=== PATIENT | male | born 1985 | race Caucasian/White ===

== ENCOUNTER 2024-01-22 13:19 | Inpatient (IN) | payer SELFPAY ==
--- NOTE | 2024-01-22 13:21 | ECG_ITS ---
[facility] Test Date: 2024-01-22 Pat Name: Rupert dukes Department: Room: Gender: Male Talent Sourcing Specialist: : 1985 Requested By: Josephine Hudson Order Number: [id number] Perez MD: Gabriella Winter M.D. Measurements Intervals [place] Rate: 60 P: 35 MN: 194 QRS: 74 QRSD: 100 T: 43 QT: 412 QTc: 414 Interpretive Statements SINUS RHYTHM No previous ECG available for comparison Electronically Signed On 01-22-2024 19:11:47 CDT by Gabriella Winter M.D. [id number]
[2024-01-22 13:26] VITALS: BP 163/108; PULSE 77; RESP 18; TEMP 36.8; O2SAT 98; BMI 26.0
--- NOTE | 2024-01-22 14:01 | ED.C_ITS ---
HPI - Psych 2 General: Chief Complaint: Psychiatric Symptoms Stated Complaint: MHE Time Seen by Provider: 01/22/24 13:21 History of Present Illness: 38-year-old man who reports a history of PTSD and presents to the emergency room with severe depression, anxiety and thoughts of dying. Police report that he was actively saying he wanted to kill himself. At this point he says he just wants to but did not have an active plan. He does say he would like to be admitted for evaluation and treatment. He is very tearful. Review of Systems 2 Narrative: Constitutional symptoms: Negative except as documented in HPI. Skin symptoms: Negative except as documented in HPI. Eye symptoms: Negative except as documented in HPI. ENMT symptoms: Negative except as documented in HPI. Respiratory symptoms: Negative except as documented in HPI. Cardiovascular symptoms: Negative except as documented in HPI. Gastrointestinal symptoms: Negative except as documented in HPI. Genitourinary symptoms: Negative except as documented in HPI. Musculoskeletal symptoms: Negative except as documented in HPI. Neurologic symptoms: Negative except as documented in HPI. Psychiatric symptoms: Negative except as documented in HPI. Endocrine symptoms: Negative except as documented in HPI. Physical Exam 2 Narrative: EXAM NARRATIVE: General: Alert. no acute distress Skin: Warm, dry Head: Normocephalic, atraumatic. Neck: Supple, trachea midline. Eye: Extraocular movements are intact. Ears, nose, mouth and throat: Oral mucosa moist. Cardiovascular: Regular rate and rhythm, Normal peripheral perfusion. Respiratory: Lungs are clear to auscultation, respirations are non-labored, breath sounds are equal, Symmetrical chest wall expansion. Gastrointestinal: Soft, Nontender, Non distended, Normal bowel sounds. Musculoskeletal: Normal ROM, no deformity. Neurological: Alert and oriented to person, place, time, and situation, No focal neurological deficit observed. Psychiatric: Cooperative, depressed, expresses suicidal ideation. Tearful. Course 2 Vital Signs: Vital signs: Vital Signs Temperature 98.2 F 01/22/24 13:26 Pulse Rate 77 01/22/24 13:26 Respiratory Rate 18 01/22/24 13:26 Blood Pressure 163/108 01/22/24 13:26 Pulse Oximetry 98 01/22/24 13:26 Oxygen Delivery Me thod Room Air 01/22/24 13:26 MDM - Psych Medical Decision Making Differential diagnosis: Patient with reported depression and suicidal ideation. concerns for infection, alcohol intoxication, cardiac issues or other medical problems prior to psychiatric admission. Workup: labwork, ekg ordered to evaluate the pathologies and to clear the patient medically prior to psychiatric admission Lab Review: Laboratory results were reviewed and interpreted by myself the emergency room physician. Lab review: - Medically cleared. - EKG shows no ischemic changes. - Blood alcohol level is negative, as well as salicylate and Tylenol. - Drug screen is positive for marijuana and methamphetamine - No signs of infection, urinalysis clear and white count is not elevated - No anemia. - BUN and creatinine are within normal limits. EKG: Time 1342. Rate 60. Normal sinus rhythm, No ST-T changes, no ectopy, normal WI & QRS intervals, This was reviewed and interpreted by myself the ER physician at 1345 Consultation: I spoke with Dr. Marmolejo with the psychiatry service who agrees to admission. Assessment and plan: Suicidal ideation Depression PTSD -Admission to neuropsychiatric unit for continued evaluation and treatment. - All lab work was reviewed and interpreted personally by myself, the ER physician - Evaluation and treatment of this problem were appropriate in the emergency setting Lab Data 01/22/24 13:50 01/22/24 13:50 Laboratory Results WBC 10.53 10^3/uL (3.29-11.43) 01/22/24 13:50 RBC 4.52 10^6/uL (3.85-5.65) 01/22/24 13:50 Hgb 14.60 g/dL (11.27-16.99) 01/22/24 13:50 Hct 42.6 % (37-53) 01/22/24 13:50 MCV 94.2 fl (82-101) 01/22/24 13:50 MCH 32.3 pg (27-33) 01/22/24 13:50 MCHC 34.3 g/dL (30-55) 01/22/24 13:50 RDW 13.1 % (12.1-15.1) 01/22/24 13:50 Plt Count 237 10^3/cmm (157-399) 01/22/24 13:50 MPV 9.3 fL (7.4-10.4) 01/22/24 13:50 Neut % (Auto) 76.4 % 01/22/24 13:50 Lymph % (Auto) 14.8 % 01/22/24 13:50 [place] % (Auto) 6.1 % 01/22/24 13:50 Eos % (Auto) 1.8 % 01/22/24 13:50 Baso % (Auto) 0.6 % 01/22/24 13:50 Neut # (Auto) 8.05 10^3/uL (1.8-7.7) H 01/22/24 13:50 Lymph # (Auto) 1.6 10^3/uL (0.8-4.8) 01/22/24 13:50 [place] # (Auto) 0.6 10^3/uL (0.2-0.9) 01/22/24 13:50 Eos # (Auto) 0.2 10^3/uL (0.0-0.8) 01/22/24 13:50 Baso # (Auto) 0.1 10^3/uL (0.0-0.1) 01/22/24 13:50 Nucleated RBC % (auto) 0 % 01/22/24 13:50 Nucleated RBCs # 0.0 /100WBC 01/22/24 13:50 Sodium 139 mmol/L (136-145) 01/22/24 13:50 Potassium 3.8 mmol/L (3.5-5.1) 01/22/24 13:50 Chloride 102 mmol/L (98-107) 01/22/24 13:50 Carbon Dioxide 23 mmol/L (22-29) 01/22/24 13:50 Anion Gap 17.8 (5-19) 01/22/24 13:50 BUN 14 mg/dL (6-20) 01/22/24 13:50 Creatinine 1.1 mg/dL (0.7-1.2) 01/22/24 13:50 GFR Calculation 74.5 mL/min (90-130) L 01/22/24 13:50 Glucose 116 mg/dL (65-115) H 01/22/24 13:50 Calculated Osmolality 289 mOsm/kg (285-295) 01/22/24 13:50 Calcium 9.1 mg/dL (8.5-10.5) 01/22/24 13:50 Total Bilirubin 0.9 mg/dL (0.15-1.2) 01/22/24 13:50 AST 24 U/L (0-40) 01/22/24 13:50 ALT 25 U/L (0-41) 01/22/24 13:50 Alkaline Phosphatase 90 U/L (40-130) 01/22/24 13:50 Total Protein 6.9 g/dL (6.6-8.7) 01/22/24 13:50 Albumin 4.5 g/dL (3.5-5.2) 01/22/24 13:50 Globulin 2.4 g/dL (1.3-4.6) 01/22/24 13:50 TSH 1.02 uIU/mL (0.27-4.20) 01/22/24 13:50 Urine Color Yellow (Yellow) 01/22/24 14:49 Urine Appearance Clear (CLEAR) 01/22/24 14:49 Urine pH 5 (5-7) 01/22/24 14:49 Ur Specific [place] 1.010 (1.005-1.030) 01/22/24 14:49 Urine Protein Neg (Negative) 01/22/24 14:49 Urine Glucose (UA) Norm (Normal) 01/22/24 14:49 Urine Ketones Negative (Negative) 01/22/24 14:49 Urine Blood Neg (Negative) 01/22/24 14:49 Urine Nitrate Negative (Negative) 01/22/24 14:49 Urine Bilirubin Neg (Negative) 01/22/24 14:49 Urine Urobilinogen Norm mg/dL (Negative) 01/22/24 14:49 Ur Leukocyte Esterase Negative (Negative) 01/22/24 14:49 Urine RBC None /hpf (0-2) 01/22/24 14:49 Urine WBC Rare /hpf (0-5) 01/22/24 14:49 Ur Squamous Epith Cells 0-4 /hpf (0-5) H 01/22/24 14:49 Amorphous Sediment Not Reportable 01/22/24 14:49 Urine Bacteria Trace /hpf (NONE) 01/22/24 14:49 Salicylates 0.6 mg/dL (3-10) L 01/22/24 13:50 Urine Opiates Screen Negative ng/mL (Negative) 01/22/24 14:49 Acetaminophen < 5.0 ug/mL (10-30) L 01/22/24 13:50 Ur Barbiturates Screen Negative ng/mL (Negative) 01/22/24 14:49 Ur Phencyclidine Scrn Negative ng/mL (Negative) 01/22/24 14:49 Ur Amphetamines Screen Positive ng/mL (Negative) H 01/22/24 14:49 U Benzodiazepines Scrn Negative ng/mL (Negative) 01/22/24 14:49 Urine Cocaine Screen Negative ng/mL (Negative) 01/22/24 14:49 U Marijuana (THC) Screen Positive ng/mL (Negative) H 01/22/24 14:49 Ethyl Alcohol < 10 mg/dL (0-10) 01/22/24 13:50 No radiology studies performed this visit Discharge Plan Discharge Patient Disposition: Admitted As Inpatient Clinical Impression: Suicidal ideation Depression Qualifiers: Depression Type: major depressive disorder Major depression recurrence: u nspecified whether recurrent Active/Remission status: currently active Major depression episode severity: severe Psychotic features: without psychotic features Qualified Code(s): F32.2 - Major depressive disorder, single episode, severe without psychotic features Condition: Stable Coding Level of Care Code ED Gas Analyst for Kian Linn
[2024-01-22 14:02] LABS: Basophils # 0.1 10^3/uL (0.0-0.1); Basophils % 0.6 %; Eosinophils # 0.2 10^3/uL (0.0-0.8); Eosinophils % 1.8 %; Hematocrit 42.6 % (37-53); Lymphocytes # 1.6 10^3/uL (0.8-4.8); Lymphocytes % 14.8 %; Mean Corpuscular HGB Conc 34.3 g/dL (30-55); Mean Corpuscular Hemoglobin 32.3 pg (27-33); Mean Corpuscular Volume 94.2 fl (82-101); Mean Platelet Volume 9.3 fL (7.4-10.4); Monocytes # 0.6 10^3/uL (0.2-0.9); Monocytes % 6.1 %; Neutrophils # 8.05 10^3/uL (1.8-7.7); Neutrophils % 76.4 %; Nucleated Red Blood Cells % 0 %; Platelet Count 237 10^3/cmm (157-399); Red Blood Count 4.52 10^6/uL (3.85-5.65); Red Cell Distribution Width 13.1 % (12.1-15.1); White Blood Count 10.53 10^3/uL (3.29-11.43)
[2024-01-22 14:31] LABS: Alanine Aminotransferase 25 U/L (0-41); Albumin Level 4.5 g/dL (3.5-5.2); Alkaline Phosphatase 90 U/L (40-130); Aspartate Amino Transferase 24 U/L (0-40); Blood Urea Nitrogen 14 mg/dL (6-20); Calcium 9.1 mg/dL (8.5-10.5); Carbon Dioxide 23 mmol/L (22-29); Chloride 102 mmol/L (98-107); Creatinine Clr Calc Pharmacy 100.8837; Globulin 2.4 g/dL (1.3-4.6); Glomerular Filtration Rate 74.5 mL/min (90-130); Glucose 116 mg/dL (65-115); Osmolality Calculated 289 mOsm/kg (285-295); Salicylate 0.6 mg/dL (3-10); Sodium 139 mmol/L (136-145); Thyroid Stimulating Hormone 1.02 uIU/mL (0.27-4.20); Total Bilirubin 0.9 mg/dL (0.15-1.2); Total Protein 6.9 g/dL (6.6-8.7)
[2024-01-22 14:38] LABS: Acetaminophen < 5.0 ug/mL (10-30); Alcohol Level < 10 mg/dL (0-10); Anion Gap 17.8 (5-19); Potassium 3.8 mmol/L (3.5-5.1)
[2024-01-22 15:03] LABS: Add Urine Culture? No; Bacteria Urine TRACE /hpf; Bilirubin Urine Neg (Negative); Blood Urine Neg (Negative); Glucose Urine UA Norm (Normal); Ketones Urine Negative (Negative); Leukocyte Esterase Urine Negative (Negative); Nitrate Urine Negative (Negative); Protein Urine Neg (Negative); Squamous Epithelial Cell Urine 0-4 /hpf (0-5); Urine Appearance Clear (CLEAR); Urine Color Yellow (Yellow); Urobilinogen Urine Norm (Negative); WBC Urine RARE /hpf (0-5); pH Urine 5 (5-7)
[2024-01-22 15:08] LABS: Amphetamines Screen Urine Positive (Negative); Barbiturates Screen Urine Negative (Negative); Benzodiazepines Screen Urine Negative (Negative); Cocaine Screen Urine Negative (Negative); Opiate Screen Urine Negative (Negative); PCP Screen Urine Negative (Negative); THC Screen Urine Positive (Negative)
[2024-01-22 15:36] VITALS: BP 152/93; PULSE 70; RESP 16; TEMP 36.7; O2SAT 98
[2024-01-22 15:52] VITALS: BP 139/97; PULSE 65; RESP 16; TEMP 36.2; O2SAT 99
[2024-01-22] MEDS: nicotine 21 mg Patch 1 PATCH TRANSDERMA (16:21)
[2024-01-22] MEDS: nicotine 2 mg Gum BUCCAL (19:12)
[2024-01-22 20:44] VITALS: BP 147/100; PULSE 60; RESP 18; O2SAT 99
[2024-01-22] MEDS: OLANZapine 5 mg ODT PO (21:04)
[2024-01-22] MEDS: trazodone 50 mg Tablet PO (21:33)
[2024-01-23 06:00] VITALS: RESP 16
[2024-01-23] MEDS: nicotine 2 mg Gum BUCCAL ×3 (12:16→18:04)
[2024-01-23 14:00] VITALS: BP 136/88; PULSE 57; RESP 16; TEMP 36.8; O2SAT 100
[2024-01-23] MEDS: OLANZapine 5 mg ODT PO (16:52)
--- NOTE | 2024-01-23 16:53 | PC.NURSE ---
Patient reporting anxiety, requesting the medication he was given last night for anxiety. Pt rates anxiety 12/02. Administered zyprexa 5mg ODT to patient.
--- NOTE | 2024-01-23 17:24 | PC.NURSE ---
Patient crying in room, sitting on floor with head on bed and shirt off. Patient crying that his is the only person he has and that she is leaving him he just knows it because she has not called to check on him today. This nurse has attempted to encourage patient to live in the present moment, to not jump to conclusions. Patient still crying despite this nurse's best efforts. Patient agreeable to take a shower following supper. Patient has no contact numbers for , gpa, or dad. Patient did not arrive to unit with cell phone.
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
[2024-01-23 19:45] VITALS: BP 142/90; PULSE 73; RESP 18; TEMP 36.7; O2SAT 98
[2024-01-23] MEDS: trazodone 50 mg Tablet PO ×2 (20:09→22:06)
[2024-01-24 06:00] VITALS: BP 164/93; PULSE 80; RESP 16; O2SAT 97
[2024-01-24] MEDS: buPROPion XL (24 HR) 150 mg Tablet PO (09:01)
[2024-01-24] MEDS: methylphenidate 10 mg Tablet PO ×2 (09:01→11:53)
[2024-01-24] MEDS: nicotine 2 mg Gum BUCCAL (10:29)
[2024-01-24 16:26] VITALS: BP 164/93; PULSE 80; RESP 16; O2SAT 97
--- NOTE | 2024-01-24 18:40 | P.NPUPN_ITS ---
Subjective NPU 2 Subjective: 38-year-old male admitted with a history of depression and suicidal ideation along with untreated ADHD for several years. The patient had reported that he had slept better. He had reported that his mood was improving. He had continued to report struggles with managing his problems with organization and stated that he was frequently overwhelmed. He reported not feeling as hopeless. He had stated that he was feeling ready to return home. He reported no sleep continuity disruption last night. Patient was able to attend groups. The patient had expressed some anxiety with being placed in a locked up facility as he had repeatedly asked whether he was able to go home but eventually was agreeable to continuing to allow adjustments to be made with his medications. Mental Status Exam 2 MSE Comments: Patient is a casually dressed white male who appeared his stated age with improved eye contact and normal hygiene. His recent and remote memory were grossly intact. There was mild psychomotor retardation appreciated. His speech was normal in regards to rate rhythm and prosody. His thought process was linear logical and goal-directed. His thought content showed evidence of passive suicidal ideation with no active plan. He denied any homicidal ideation. There was no clear evidence of delusional thinking. His mood was described as better. His affect was brighter today. He denied any auditory or visual hallucinations and did not appear to be responding to internal stimuli. His attention span was variable as he appeared at times distracted. His insight was limited. His judgment was poor. His impulse control appeared poor. Vitals/I&O/Wt Last Vital Signs Temp 98.0 F 01/23/24 19:45 Pulse 80 01/24/24 16:26 Resp 16 01/24/24 16:26 BP 164/93 01/24/24 16:26 Pulse Ox 97 01/24/24 16:26 O2 Del Method Room Air 01/24/24 06:00 Weight last 48 hrs Weight 78.471 kg Data NPU 01/22/24 13:50 01/22/24 13:50 A&P Assessment and plan (1) MDD (major depressive disorder), recurrent episode: (2) ADHD (attention deficit hyperactivity disorder), combined type: (3) Suicidal ideation: (4) Complex posttraumatic stress disorder: Plan 38-year-old male history of significant childhood trauma with likely complex PTSD along with ADHD currently untreated and admitted after endorsing suicidal ideation. #1.? Engage patient in individual milieu and group therapy.? #2? Encourage sober living treatment after discharge at the highest level of care to which he is willing to commit. #3???Continue Wellbutrin XL 150mg in am and increase methylphenidate 10mg tid. #4?? TO-15 minute checks? #5?? Will attempt to gather collateral information Involuntary Hold Information 2 96 Hour Hold: 96 Hour Involuntary Admission: No Attestations NPU 2 Medical Necessity Statement*: Inpatient hospitalization is medically necessary and deemed to ?be ?the clinically appropriate intervention ?at this time.? We will monitor/initiate medications and make changes as indicated.? The patient?s likely length of stay 2-4 days. Coding Level of Care Code Acute Code for g Fwd Diagnoses MDD (major depressive disorder), recurrent episode F33.9 ADHD (attention deficit hyperactivity disorder), combined type F90.2 Suicidal ideation R45.851 Complex posttraumatic stress disorder F43.10
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
== END 2024-01-24 16:28 | disposition home or self-care (01) | DRG 885 ==
LOC: ER 15:14 → NP 15:27
PROVIDERS: Admitting Provider Psychiatry & Neurology Psychiatry; Emergency Provider Emergency Medicine; Visit Provider Psychiatry & Neurology Psychiatry
DX: F33.9 Major depressive disorder, recurrent, unspecified (principal); R45.851 Suicidal ideations; F41.9 Anxiety disorder, unspecified; F90.2 Attention-deficit hyperactivity disorder, combined type; Z81.1 Family history of alcohol abuse and dependence; Z62.810 Personal history of physical and sexual abuse in childhood; Z62.811 Personal history of psychological abuse in childhood; F43.10 Post-traumatic stress disorder, unspecified
CPT/HCPCS: 36415; 80053; 80306; 80307; 81001; 84443; 85025; 93005; 97150; 97165; 99285